=== PATIENT | female | born 1990 | race Caucasian/White ===

== ENCOUNTER 2020-08-20 17:30 | Emergency (ER) | payer OTHER, SELFPAY ==
--- NOTE | ~2020-08-20 | XR_ITS ---
EXAMINATION: XR knee LT min 4V EXAM DATE: 08/20/2020 18:03 INDICATION: Initial encounter following injury, with pain of the left knee. TECHNIQUE: Left knee frontal, crosstable lateral, orthogonal oblique projections for interpretation. [place] projection. There are no prior studies for comparison. FINDINGS: No evidence osteochondral defect or joint body in the left knee joint. Trace joint fluid . There are no acute fractures or dislocations identified. There is no subcutaneous gas. The soft t issue is unremarkable. There are no radiopaque foreign bodies. IMPRESSION: 1. Left knee exam without acute osseous findings. 2. Trace joint effusion. Reviewed, dictated and finalized at location A.
[2020-08-20 17:49] VITALS: BP 147/108; PULSE 75; RESP 20; TEMP 36.6; O2SAT 99
--- NOTE | 2020-08-20 18:22 | ED.LOWEXIN ---
HPI - Extremity Injury (Lower) General Chief Complaint: Extremity Injury, Lower Stated Complaint: Fell at work possible injury to left knee Time Seen by Provider: 08/20/20 18:10 Source: patient and RN notes reviewed Mode of arrival: ambulatory Limitations: no limitations History of Present Illness HPI Narrative: Patient presents today complaining of left knee pain. She injured her knee while at work yesterday when she slipped in some salad dressing and fell onto a tiled floor onto her patella. She has been ambulatory with increased pain. Currently rates her pain 7/10 and has been taking Aleve and ibuprofen with mild relief. She has also been applying ice. She does report some tingling to the posterior thigh. Patient works at [employer]. complaint: knee injury Related Data Home Medications Medication Instructions Recorded Confirmed No Home Medications 08/20/20 08/20/20 Allergies Allergy/AdvReac Type Severity Reaction Status Date / Time No Known Allergies Allergy Unverified 03/02/16 20:56 Review of Systems Review of Systems: Narrative: CONSTITUTIONAL: Denies body aches, fever, chills, or sweats. EYES: Denies visual changes, redness, or discharge. ENT: Denies rhinorrhea, congestion, sore throat, or otalgia. CARDIOVASCULAR: Denies chest pain, palpitations, or edema. RESPIRATORY: Denies cough or dyspnea. GASTROINTESTINAL: Denies abdominal pain, nausea, vomiting, or diarrhea. GENITOURINARY: Denies dysuria or hematuria. SKIN: Denies rash, itching, or wounds. MUSCULOSKELETAL: Denies back pain, or myalgia. + Left knee pain NEUROLOGIC: Denies headache, numbness, or weakness.+ Left thigh tingling PSYCH: Denies depression or anxiety. PMFSH Comments At time of signature, I have reviewed and agree with nursing past medical, surgical, social and family history unless otherwise noted. Please see nursing chart for further information. There is no relevant family history pertinent to the presenting complaint Exam Narrative: Exam Narrative: GENERAL: Well-appearing, well-nourished, and in no acute distress. HEAD: Normocephalic, atraumatic. EYES: EOMI. No redness or drainage. Conjunctivae normal. ENT: Mucous membranes pink and moist. NECK: Normal AROM. CHEST: No respiratory distress. EXTREMITIES: Left knee: Tenderness to the patella and the medial joint line as well as the popliteal fossa. Scant edema noted. Tenderness to the patellar tendon. Tenderness with any range of motion. Very superficial abrasion to the patella. Distal sensation intact. Capillary refill normal. Posterior tibial pulse normal. SKIN: Warm, dry, no rash. Capillary refill normal. Normal skin turgor. NEURO: No focal deficits. Alert and oriented x3. Gait steady. PSYCH: Normal affect. No signs of depression or anxiety. Course Vital Signs Vital signs: Vital Signs Temperature 97.8 F 08/20/20 17:49 Pulse Rate 75 08/20/20 17:49 Respiratory Rate 20 08/20/20 17:49 Blood Pressure 147/108 H 08/20/20 17:49 Pulse Oximetry 99 08/20/20 17:49 Temperature 97.8 F 08/20/20 17:49 Pulse Rate 75 08/20/20 17:49 Respiratory Rate 20 08/20/20 17:49 Blood Pressure 147/108 H 08/20/20 17:49 Pulse Oximetry 99 08/20/20 17:49 Reviewed. Pt has been instructed to follow up with her PCP regarding her elevated blood pressure today. MDM - Extremity Injury (Lower) Differential Diagnosis Differential diagnosis: Likely other (Knee sprain, knee contusion, ligamental injury, meniscus injury, knee effusion) Imaging Data Radiologist's impression: ITS Impressions Knee X-Ray 08/20/20 18:04 IMPRESSION: 1. Left knee exam without acute osseous findings. 2. Trace joint effusion. Critical Care Time Critical Care Time Critical Care Time: No Discharge Plan Discharge Clinical Impression: Injury of knee, left Patient Disposition: Home, Self-Care Condition: Stable Instructions: Knee Pain (ED) Additio
== END 2020-08-20 18:35 | disposition home or self-care (01) ==
PROVIDERS: Emergency Provider Nurse Practitioner
DX: S89.92XA Unspecified injury of left lower leg, initial encounter (principal); W01.0XXA Fall on same level from slipping, tripping and stumbling without subsequent striking against object, initial encounter
CPT/HCPCS: 73564; 99213; G0463

== ENCOUNTER 2022-07-07 12:31 | Emergency (ER) | payer OTHER, SELFPAY ==
--- NOTE | ~2022-07-07 | XR_ITS ---
XR forearm RT 2V 07/07/2022 12:57 INDICATION: Right arm pain PROCEDURE: 2 views right forearm COMPARISON: No prior studies for comparison. FINDINGS: Fracture, dislocation or subluxation is not identified. The soft tissues appear within norm al limits. No foreign bodies are identified. IMPRESSION: 1: NO ACUTE BONE OR JOINT ABNORMALITY IDENTIFIED. Reviewed, dictated and finalized at location L.
[2022-07-07 12:42] VITALS: BP 147/104; PULSE 80; RESP 16; TEMP 36.6; O2SAT 100
--- NOTE | 2022-07-07 12:44 | ED.UPPEXIN ---
HPI - Extremity Injury (Upper) General Chief Complaint: Extremity Injury, Upper Stated Complaint: Right Arm Injury Time Seen by Provider: 07/07/22 12:44 Source: patient and RN notes reviewed History of Present Illness HPI narrative: Patient is a 31-year-old female presents to the Urgent Care with complaints of right forearm pain after ?whacking on a metal chair at work last night?. Patient is right-hand dominant. Patient is not taking anything [id number] for pain. No acute distress noted. Patient aware of the plan of care. Some parts of this dictation were generated by voice recognition software and may contain typographical and/or grammatical inaccuracies. Related Data Home Medications Medication Instructions Recorded Confirmed No Home Medications 08/20/20 08/20/20 Allergies Allergy/AdvReac Type Severity Reaction Status Date / Time No Known Allergies Allergy Unverified 03/02/16 20:56 Review of Systems Review of Systems: CONSTITUTIONAL: Denies fever, chills, or sweats. EYES: Denies visual changes, redness, or discharge. ENT: Denies rhinorrhea, congestion, sore throat, or otalgia. CARDIOVASCULAR: Denies chest pain, palpitations, or edema. RESPIRATORY: Denies cough or dyspnea. GASTROINTESTINAL: Denies abdominal pain, nausea, vomiting, or diarrhea. GENITOURINARY: Denies dysuria or hematuria. SKIN: Denies rash or itching. MUSCULOSKELETAL: Reports right arm pain NEUROLOGIC: Denies headache, numbness, or weakness. All other systems reviewed are negative, except as documented in HPI. PMFSH Comments At the time of my signature, I reviewed and agree with the nursing past medical, surgical, social, and family history. There is no relevant family history pertinent to the patient complaint. Exam Narrative: GENERAL: This is a well-nourished, well-developed patient, in no apparent distress. HEAD: normocephalic, atraumatic. EYES: PERRL. Sclera clear/white. Vision is grossly intact. EARS: External ears normal NOSE: External nose normal with no obvious nasal discharge, nares without redness, no rhinorrhea. THROAT: Mucous membranes moist, NECK: Neck supple, SKIN: warm, intact with no suspicious lesions or rash, good texture and turgor. NEURO: awake, alert, and oriented to person, place and time. There were no obvious focal neurologic abnormalities. EXTREMITIES: No obvious edema, ecchymosis, erythema noted to the right forearm. Range of motion to right upper arm within normal limits with mild exacerbated pain on rotation. Positive strong right radial pulse with capillary refill less than 2 seconds. Course Course Level of Care: Express Care Visit Vital Signs Vital signs: Vital Signs Temperature 97.8 F 07/07/22 12:42 Pulse Rate 80 07/07/22 12:42 Respiratory Rate 16 07/07/22 12:42 Blood Pressure 147/104 H 07/07/22 12:42 Pulse Oximetry 100 07/07/22 12:42 Oxygen Delivery Room Air 07/07/22 12:42 Temperature 97.8 F 07/07/22 12:42 Pulse Rate 80 07/07/22 12:42 Respiratory Rate 16 07/07/22 12:42 Blood Pressure 147/104 H 07/07/22 12:42 Pulse Oximetry 100 07/07/22 12:42 Oxygen Delivery Room Air 07/07/22 12:42 Reviewed- Patient is informed that they may have pre-hypertension or hypertension based on a blood pressure reading in the department. I recommend the patient call the primary care provider listed on their discharge instructions or a physician of their choice this week to arrange follow-up for further evaluation of possible pre-hypertension or hypertension. MDM - Extremity Injury (Upper) MDM Narrative Medical decision making narrative: Reviewed x-ray results to the patient. She is aware there is no fracture deformity. Would advise avoid any strenuous activity until pain is resolved. Use Tylenol/ibuprofen/heat/ice/compression as needed for pain or discomfort. Follow-up with your PCP within 2-5 days or for worsening symptoms or failure to improve. Differential
== END 2022-07-07 13:12 | disposition home or self-care (01) ==
PROVIDERS: Emergency Provider Nurse Practitioner Family
DX: S50.11XA Contusion of right forearm, initial encounter (principal); W22.8XXA Striking against or struck by other objects, initial encounter
CPT/HCPCS: 73090; 99213; G0463